=== PATIENT | male | born 1985 | race African-American/Black ===

== ENCOUNTER 2017-05-11 11:29 | Emergency (ER) | payer SELFPAY ==
[~2017-05-11] VITALS: Ht 167.6 cm; Wt 68.0 kg
[2017-05-11 11:51] VITALS: BP 156/117
== END 2017-05-11 17:34 | disposition left against medical advice (07) ==
LOC: ER 12:05
DX: Z53.21 Procedure and treatment not carried out due to patient leaving prior to being seen by health care provider (principal)

== ENCOUNTER 2019-10-02 09:35 | Emergency (ER) | payer MEDICAID ==
[~2019-10-02] VITALS: Ht 167.6 cm; Wt 9.0 kg
[2019-10-02 11:28] LABS: CHLORIDE 109 mEq/L (98-107)
[2019-10-02 11:30] LABS: BASOPHILS % 0.9 % (0.0-2.0); HEMATOCRIT. 35.6 % (42.0-52.0); HEMOGLOBIN. 12.1 g/dL (14.0-18.0); LYMPHOCYTES % 29.2 % (20.0-50.0); MEAN CORPUSCULAR HEMOGLOBIN 30.2 pg (28.0-32.0); MEAN CORPUSCULAR VOLUME 88.8 fL (80.0-94.0); MONOCYTES % 4.9 % (2.0-8.0); PLATELET 267 x1000/uL (130-400); RED CELL DISTRIBUTION WIDTH 13.7 % (11.6-14.6)
[2019-10-02 11:31] LABS: INR 0.9; PARTIAL THROMBOPLASTIN TIME 24.5 sec (23.4-31.0); PROTHROMBIN TIME 9.8 sec (9.6-11.0)
[2019-10-02] MEDS ORDERED: IOHEXOL-300 100 ML BOTTLE ONE (12:29)
[2019-10-02] MEDS ORDERED: DEXTROSE 50% WATER 50ML SYRINGE IV ONE (12:30)
[2019-10-02 14:30] VITALS: BP 135/80
== END 2019-10-02 15:39 | disposition home or self-care (01) ==
LOC: ER 09:58
DX: R05 Cough (principal); D17.9 Benign lipomatous neoplasm, unspecified; E16.2 Hypoglycemia, unspecified; F12.10 Cannabis abuse, uncomplicated
CPT/HCPCS: 36415; 71045; 71260; 80053; 82962; 83880; 84484; 85025; 85610; 85730; 93005; 96374; 99285; Q9967

== ENCOUNTER 2021-02-04 03:39 | Emergency (ER) | payer MEDICAID ==
[~2021-02-04] VITALS: Ht 167.6 cm; Wt 68.0 kg
[2021-02-04] MEDS ORDERED: TETANUS, DIPHTHERIA, PERTUSSIS VAC/PF 0.5ML (>10YR OLD) IM ONE (04:00)
[2021-02-04] MEDS ORDERED: ACETAMINOPHEN 325MG TABLET PO ONE (04:00)
[2021-02-04] MEDS ORDERED: IBUPROFEN 400MG TABLET PO ONE (04:00)
[2021-02-04] MEDS ORDERED: BACITRACIN ZINC OINT UDPKT TOP ONE (04:00)
[2021-02-04] MEDS ORDERED: LIDOCAINE HCL 1% 20ML VIAL (Pyxis) INJ INFIL ONE (04:15)
[2021-02-04] MEDS ORDERED: NAPR-1176 MT (05:05)
[2021-02-04] MEDS ORDERED: ACET-2708 MT (05:05)
[2021-02-04 05:34] VITALS: BP 124/66
== END 2021-02-04 05:35 | disposition home or self-care (01) ==
LOC: ER 03:39
DX: S61.411A Laceration without foreign body of right hand, initial encounter (principal); Y08.89XA Assault by other specified means, initial encounter; W03.XXXA Other fall on same level due to collision with another person, initial encounter; Y93.89 Activity, other specified; Y92.89 Other specified places as the place of occurrence of the external cause
CPT/HCPCS: 12002; 73130; 90471; 90715; 99284; J3490

== ENCOUNTER 2021-02-13 09:21 | Emergency (ER) | payer MEDICAID ==
[~2021-02-13] VITALS: Ht 167.6 cm; Wt 68.0 kg
[~2021-02-13 09:21] MED LIST: ACET-2708 MT; NAPR-1176 MT
[2021-02-13 09:23] VITALS: BP 167/123
== END 2021-02-13 10:41 | disposition home or self-care (01) ==
LOC: ER 09:21
DX: Z48.02 Encounter for removal of sutures (principal)
CPT/HCPCS: 99281

== ENCOUNTER 2021-10-07 09:19 | Emergency (ER) | payer MEDICAID ==
[~2021-10-07] VITALS: Ht 167.6 cm; Wt 75.0 kg
[2021-10-07] MEDS ORDERED: CEPH500C2 MT (10:16)
[2021-10-07] MEDS ORDERED: IBUP-2029 MT (10:16)
[2021-10-07 10:48] VITALS: BP 150/76
== END 2021-10-07 10:48 | disposition home or self-care (01) ==
LOC: ER 09:19
DX: S40.862A Insect bite (nonvenomous) of left upper arm, initial encounter (principal); L03.114 Cellulitis of left upper limb; W57.XXXA Bitten or stung by nonvenomous insect and other nonvenomous arthropods, initial encounter; Y93.89 Activity, other specified; Y92.018 Other place in single-family (private) house as the place of occurrence of the external cause
CPT/HCPCS: 99283

== ENCOUNTER 2023-10-05 16:30 | Emergency (ER) | payer SELFPAY ==
[~2023-10-05] VITALS: Ht 170.2 cm; Wt 68.0 kg
[~2023-10-05 16:30] MED LIST changes: +CEPH500C2 MT; +IBUP-2029 MT
[2023-10-05 16:35] VITALS: O2SAT 97
[2023-10-05] MEDS: TETANUS, DIPHTHERIA, PERTUSSIS VAC/PF 0.5ML (>10YR OLD) IM ONE (16:45)
[2023-10-05 16:51] LABS: CHLORIDE 105 mEq/L (98-107); POTASSIUM 4.2 mEq/L (3.5-5.1); SODIUM 141 mEq/L (136-145)
[2023-10-05 16:52] LABS: CALCIUM 9.3 mg/dL (8.7-10.4); CARBON DIOXIDE 24 mEq/L (21-32)
[2023-10-05 16:57] LABS: GLUCOSE 152 mg/dL (70-105); UREA NITROGEN BLOOD 6 mg/dL (9-23)
[2023-10-05 16:59] LABS: ALANINE AMINOTRANSFERASE 25 IU/L (10-49); ALBUMIN 5.1 g/dL (3.2-4.8); ASPARTATE AMINOTRANSFERASE 34 IU/L (<34); BILIRUBIN TOTAL 0.8 mg/dL (0.1-1.0); PROTEIN TOTAL 7.8 g/dL (6.0-8.3)
[2023-10-05 17:25] VITALS: BP 145/99; PULSE 125; RESP 20; TEMP 98.7
[2023-10-05] MEDS: CEFAZOLIN 1000MG PREMIX 50 ML IV ONE ×2 (17:25)
== END 2023-10-05 17:23 | disposition left against medical advice (07) ==
LOC: ER 16:30
DX: S01.83XA Puncture wound without foreign body of other part of head, initial encounter (principal); F10.20 Alcohol dependence, uncomplicated; W34.09XA Accidental discharge from other specified firearms, initial encounter; Y93.89 Activity, other specified; Y92.89 Other specified places as the place of occurrence of the external cause; Y99.8 Other external cause status
CPT/HCPCS: 99291; 70450; 80053; 36415; 90715; 90471; J0690